=== PATIENT | female | born 1935 | race Caucasian/White ===

== ENCOUNTER 2018-12-24 12:21 | Inpatient (IN) ==
[2018-12-24] MEDS ORDERED: ONDANSETRON 4 MG/2 ML VIAL IV PRN (14:13)
[2018-12-24] MEDS ORDERED: ACETAMINOPHEN 325 MG TABLET PO PRN (15:38)
[2018-12-24] MEDS: cefTRIAXone 1,000 MG in SYRINGE 1 EACH IV SCH (16:37)
[2018-12-24 16:55] LABS: Basophils % 0.6 % (0.0-0.8); Eosinophils # 0.1 10*3/uL (0.0-0.87); Eosinophils % 1.9 % (0.00-10.9); Hematocrit 37.9 VOL% (35.7-47.0); Hemoglobin 12.1 GM/DL (12.0-16.0); Immature Granulocytes % 0.4 %; Immature Granulocytes Absolute 0.03 #; Lymphocytes # 1.7 10*3/uL (1.4-4.0); Lymphocytes % 24.1 % (21.3-54.2); Mean Corpuscular HGB Conc 31.9 GM/DL (32-36); Mean Corpuscular Hemoglobin 29 PG (27-34); Mean Corpuscular Volume 89.6 FL (87-102); Monocytes # 0.9 10*3/uL (0.11-0.8); Monocytes % 12.5 % (1.7-12.7); Neutrophils # 4.2 10*3/uL (1.4-7.4); Neutrophils % 60.5 % (38.7-73.9); Platelet Count 270 T/CUMM (130-400); Red Blood Count 4.23 MC/CUMM (3.8-5.5); Red Cell Distribution Width 13.2 % (9.3-17.3)
[2018-12-24 17:15] LABS: Albumin 3.5 G/DL (3.4-5.0); Bilirubin,Total 0.6 MG/DL (0.2-1.0); Calcium 8.5 MG/DL (8.5-10.1); Osmolality,Calculated 276.7 MOS/KG (273-304); Potassium 3.8 MMOL/L (3.5-5.1)
[2018-12-25 05:03] LABS: Basophils # 0.1 10*3/uL (0.0-0.2); Basophils % 0.7 % (0.0-0.8); Eosinophils # 0.3 10*3/uL (0.0-0.87); Eosinophils % 4.3 % (0.00-10.9); Hematocrit 32.8 VOL% (35.7-47.0); Hemoglobin 10.5 GM/DL (12.0-16.0); Immature Granulocytes % 0.3 %; Immature Granulocytes Absolute 0.02 #; Lymphocytes # 1.9 10*3/uL (1.4-4.0); Lymphocytes % 26.7 % (21.3-54.2); Mean Corpuscular Hemoglobin 29 PG (27-34); Mean Corpuscular Volume 89.4 FL (87-102); Mean Platelet Volume 9.5 FL (9.6-12.0); Monocytes # 1.2 10*3/uL (0.11-0.8); Monocytes % 17.4 % (1.7-12.7); Neutrophils # 3.5 10*3/uL (1.4-7.4); Neutrophils % 50.6 % (38.7-73.9); Platelet Count 257 T/CUMM (130-400); Red Blood Count 3.67 MC/CUMM (3.8-5.5); Red Cell Distribution Width 13.1 % (9.3-17.3)
[2018-12-25 05:34] LABS: Calcium 8.1 MG/DL (8.5-10.1); Eosinophils 9 % (0-10); Lymphocytes 24 % (20-55); Osmolality,Calculated 278.5 MOS/KG (273-304); Potassium 4.3 MMOL/L (3.5-5.1); Risk Ratio 1.84; Segmented Neutrophils 56 % (50-85); Thyroid Stimulating Hormone 0.913 uIU/ml (0.358-3.74); Total Cells Counted 100; VLDL CHOLESTEROL 10.4 MG/DL
[2018-12-25 05:35] LABS: Hypochromasia 1+; Ovalocytes Slight; Platelet Estimate Adequate
[2018-12-25] MEDS ORDERED: ceFAZolin 1,000 MG in SYRINGE 1 EACH IV ONE (07:00)
[2018-12-25] MEDS: ATENOLOL 25 MG TABLET PO SCH ×2 (07:34→09:30)
[2018-12-25] MEDS: PANTOPRAZOLE 40 MG TABLET PO SCH ×2 (07:34→09:29)
[2018-12-25] MEDS: LISINOPRIL 5 MG TABLET PO SCH ×2 (07:34→09:29)
[2018-12-25] MEDS: amLODIPine 10 MG TABLET PO SCH ×2 (07:37→09:29)
[2018-12-25] MEDS ORDERED: FUROSEMIDE 20 MG TABLET PO SCH (09:00)
[2018-12-25] MEDS ORDERED: PROMETHAZINE 25 MG/1 ML VIAL IM PRN (09:16)
[2018-12-25] MEDS ORDERED: MAGNESIUM HYDROXIDE SUSP 30 ML UDCUP PO PRN (09:16)
[2018-12-25] MEDS ORDERED: diphenhydrAMINE CAP 25 MG CAPSULE PO PRN (09:16)
[2018-12-25] MEDS ORDERED: LACTULOSE 20 GM/30 ML UDCUP PO PRN (09:16)
[2018-12-25] MEDS ORDERED: BISACODYL 10 MG SUPP RECTAL PRN (09:16)
[2018-12-25] MEDS ORDERED: MECLIZINE 25 MG TABLET PO PRN (09:19)
[2018-12-25] MEDS ORDERED: ONDANSETRON ODT 4 MG TABLET PO PRN (09:19)
[2018-12-25] MEDS ORDERED: fentaNYL 100 MCG/2 ML VIAL ONE (09:25)
[2018-12-25] MEDS ORDERED: ePHEDrine 50 MG/ML AMP ONE (09:25)
[2018-12-25 09:26] LABS: Apearance,Urine CLEAR (Clear); Bilirubin,Urine Negative (Negative); Blood, Urine Small mg/dL (Negative); Glucose,Urine (UA) Negative (Negative); Hyaline Casts,Urine 1 /LPF (0-3); Ketones,Urine 20 mg/dL (Negative); Mucus,Urine Occasional /LPF (Occasional); Nitrite,Urine Negative (Negative); Protein,Urine Negative; RBC,Urine 18 /HPF (0-4); Squamous Epithelial Cell,Urine Occasional /HPF (0-10); Urine Color Yellow (Yellow); Urine Specific Gravity 1.026 (1.001-1.035); Urine Urobilinogen < 2.0 EU/DL (0.2-1.0); WBC,Urine 2 /HPF (0-6)
[2018-12-25] MEDS ORDERED: PROPOFOL 500 MG/50 ML BOTTLE IV ONE (09:26)
[2018-12-25] MEDS ORDERED: BUPIVACAINE SPINAL 0.75% 2 ML AMP SPINAL ONE (09:26)
[2018-12-25] MEDS ORDERED: KETAMINE 500 MG/10 ML VIAL ONE (09:26)
[2018-12-25] MEDS ORDERED: MORPHINE 4 MG/1 ML VIAL IV PRN (09:37)
[2018-12-25] MEDS: LACTATED RINGERS 1,000 ML IV SCH (15:24)
[2018-12-25] MEDS: cefTRIAXone 1,000 MG in SYRINGE 1 EACH IV SCH (15:25)
[2018-12-25] MEDS: ceFAZolin 1,000 MG in SYRINGE 1 EACH IV SCH ×2 (18:34→23:09)
[2018-12-25] MEDS: FONDAPARINUX 2.5 MG/0.5 ML SYRINGE SUBCUT SCH (20:22)
[2018-12-25] MEDS: MORPHINE 4 MG/1 ML VIAL IV PRN (21:47)
[2018-12-26] MEDS: MORPHINE 4 MG/1 ML VIAL IV PRN ×2 (03:26→12:54)
[2018-12-26 05:15] LABS: Basophils % 0.5 % (0.0-0.8); Eosinophils # 0.3 10*3/uL (0.0-0.87); Eosinophils % 3.7 % (0.00-10.9); Hematocrit 32.3 VOL% (35.7-47.0); Hemoglobin 10.1 GM/DL (12.0-16.0); Immature Granulocytes % 0.5 %; Immature Granulocytes Absolute 0.04 #; Lymphocytes # 1.4 10*3/uL (1.4-4.0); Lymphocytes % 17.1 % (21.3-54.2); Mean Corpuscular HGB Conc 31.3 GM/DL (32-36); Mean Corpuscular Hemoglobin 29 PG (27-34); Mean Corpuscular Volume 91.2 FL (87-102); Mean Platelet Volume 9.1 FL (9.6-12.0); Monocytes # 1.3 10*3/uL (0.11-0.8); Monocytes % 15.4 % (1.7-12.7); Neutrophils # 5.1 10*3/uL (1.4-7.4); Neutrophils % 62.8 % (38.7-73.9); Platelet Count 243 T/CUMM (130-400); Red Blood Count 3.54 MC/CUMM (3.8-5.5); Red Cell Distribution Width 13.3 % (9.3-17.3); White Blood Count 8.1 T/CUMM (4-12)
[2018-12-26 05:34] LABS: Osmolality,Calculated 274.8 MOS/KG (273-304); Potassium 3.8 MMOL/L (3.5-5.1)
[2018-12-26] MEDS: LACTATED RINGERS 1,000 ML IV SCH ×2 (06:27→13:13)
[2018-12-26] MEDS: LISINOPRIL 5 MG TABLET PO SCH (10:16)
[2018-12-26] MEDS: PANTOPRAZOLE 40 MG TABLET PO SCH (10:17)
[2018-12-26] MEDS: ATENOLOL 25 MG TABLET PO SCH (10:18)
[2018-12-26] MEDS: amLODIPine 10 MG TABLET PO SCH (10:20)
[2018-12-26] MEDS: ceFAZolin 1,000 MG in SYRINGE 1 EACH IV SCH (11:29)
[2018-12-26] MEDS ORDERED: DOCUSATE SODIUM 100 MG CAPSULE PO SCH (12:30)
[2018-12-26] MEDS: POLYETHYLENE GLYCOL POWDER 17 GM PACK PO SCH ×2 (13:03→20:54)
[2018-12-26] MEDS: DOCUSATE SODIUM 100 MG CAPSULE PO SCH ×2 (13:03→20:54)
[2018-12-26] MEDS: LACTULOSE 20 GM/30 ML UDCUP PO SCH ×2 (13:14→20:54)
[2018-12-26] MEDS ORDERED: TUBERCULIN SKIN TEST 0.1 ML SYRINGE INTRADERM ONE (15:11)
[2018-12-26] MEDS: cefTRIAXone 1,000 MG in SYRINGE 1 EACH IV SCH (18:08)
[2018-12-26] MEDS: FONDAPARINUX 2.5 MG/0.5 ML SYRINGE SUBCUT SCH (20:54)
[2018-12-27] MEDS: MORPHINE 4 MG/1 ML VIAL IV PRN (07:27)
[2018-12-27] MEDS: ATENOLOL 25 MG TABLET PO SCH (08:55)
[2018-12-27] MEDS: LISINOPRIL 5 MG TABLET PO SCH (08:55)
[2018-12-27] MEDS: DOCUSATE SODIUM 100 MG CAPSULE PO SCH (08:55)
[2018-12-27] MEDS: amLODIPine 10 MG TABLET PO SCH (08:55)
[2018-12-27] MEDS: PANTOPRAZOLE 40 MG TABLET PO SCH (08:55)
[2018-12-27] MEDS: POLYETHYLENE GLYCOL POWDER 17 GM PACK PO SCH (08:56)
[2018-12-27] MEDS: LACTULOSE 20 GM/30 ML UDCUP PO SCH (08:56)
[2018-12-27] MEDS ORDERED: MAGNESIUM CITRATE 300 ML BOTTLE PO ONE (09:47)
[2018-12-27 12:23] VITALS: BP 124/78
== END 2018-12-27 12:35 | disposition home or self-care (01) | DRG 481 ==
LOC: N.ED 12:21 → N.EDINP 14:56 → N.3E 17:17
PROVIDERS: ADMIT Hospitalist; ATTEND Hospitalist